=== PATIENT | female | born 1995 | race African-American/Black ===

== ENCOUNTER 2018-01-06 02:51 | Inpatient (IN) | payer OTHER ==
[~2018-01-06] VITALS: Ht 160 cm; Wt 71.4 kg
[2018-01-06] VITALS (29 sets, daily range): BP systolic 107–196; BP diastolic 62–93; PULSE 50–109; TEMP 97.6–98.4
[~2018-01-06 02:51] MED LIST: ASPIRIN 81M81 MG/TA2 PO; DEPO-MEDRO20 MG/1 ML; MACROBID 1100 MG/CAP PO; MAGIC MOUTHWASH1 M1 PO; MOTRIN 600600 MG/TAB PO; NO HOME MEDICATIONS; NORCO 325 MG-51 TAB PO; OMNICEF 300MG300 MG PO; PERCOCET 325 MG1 TA2 PO; PHENERGAN 25 TA25 MG PO
[2018-01-06 05:16] LABS: BASO % 0.4 % (0.0-2.0); EOS # 0.1 (0.0-0.7); EOS % 0.8 % (0-4.0); GRAN # 5.9 (1.4-6.5); GRAN % 57.2 % (42.2-75.2); LYMPH # 3.5 (1.2-3.4); LYMPH % 33.9 % (20.0-51.0); MEAN CELL VOLUME 77 fl (80.0-100.0); MEAN CORPUSCULAR HGB CONC 32 g/dl (33.0-37.0); MEAN PLATELET VOLUME 10.8 fl (7.4-10.4); MONO # 0.8 (0.1-0.6); MONO % 7.3 % (1.7-9.3); PLATELET COUNT 409 K/mm3 (130-400); RED BLOOD COUNT 4.49 M/mm3 (4.10-5.30); REDCELL DISTRIBUTION WIDTH-CV 15.9 % (11.5-14.5)
[2018-01-06 05:18] LABS: HEMATOCRIT 34.4 % (37.0-47.0); HEMOGLOBIN 11.1 g/dl (12.5-16.0); MEAN CORPUSCULAR HEMOGLOBIN 25 pg (27.0-31.0)
[2018-01-06] MEDS ORDERED: PRENATAL PLUS PO (06:43)
[2018-01-07 00:01] VITALS: BP 144/77; PULSE 73; TEMP 97.7
[2018-01-07 03:52] VITALS: BP 132/79; PULSE 62; TEMP 98.2
[2018-01-07 08:30] VITALS: BP 143/81; PULSE 60; TEMP 98.3
[2018-01-07 16:45] VITALS: BP 160/89; PULSE 57; TEMP 97.9
[2018-01-07 20:30] VITALS: BP 150/82; PULSE 55; TEMP 98.1
[2018-01-08 07:45] VITALS: BP 165/92; PULSE 58; TEMP 98.2
[2018-01-08 13:00] VITALS: BP 151/82; PULSE 57; TEMP 98.2
[2018-01-08 17:00] VITALS: BP 154/83; PULSE 66; TEMP 98
[2018-01-08 20:30] VITALS: BP 145/83; PULSE 70; TEMP 97.5
[2018-01-09 01:00] VITALS: BP 121/76; PULSE 70; TEMP 97.7
[2018-01-09 07:00] VITALS: BP 136/86; PULSE 80; TEMP 98.3
[2018-01-09] MEDS ORDERED: PROCARDIA XL 3030 MG PO (08:56)
[2018-01-09] MEDS ORDERED: IBU600 MG PO (08:56)
[2018-01-09] MEDS ORDERED: PERCOCET 325 MG1 TA2 PO (08:56)
== END 2018-01-09 10:45 | disposition home or self-care (01) | DRG 766 ==
LOC: LDRO 02:51 → LDR 03:58 → OB 03:58
PROVIDERS: Obstetrics & Gynecology
PROC: 10D00Z1 Extraction of Products of Conception, Low, Open Approach (ICD-10-PCS; principal; 2018-01-06)
DX: O75.82 Onset (spontaneous) of labor after 37 completed weeks of gestation but before 39 completed weeks gestation, with delivery by (planned) cesarean section (principal); O13.4 Gestational [pregnancy-induced] hypertension without significant proteinuria, complicating childbirth; O34.211 Maternal care for low transverse scar from previous cesarean delivery; N85.8 Other specified noninflammatory disorders of uterus; O99.02 Anemia complicating childbirth; D64.9 Anemia, unspecified; O99.334 Smoking (tobacco) complicating childbirth; F17.210 Nicotine dependence, cigarettes, uncomplicated; Z3A.39 39 weeks gestation of pregnancy; Z37.0 Single live birth
CPT/HCPCS: J0690; J1885; J2270; J2405; J2590; J7120